=== PATIENT | female | born 1995 | race African-American/Black ===

== ENCOUNTER 2016-12-26 12:15 | Day surgery (SDC) | payer OTHER ==
[2016-12-25 12:21] VITALS: BMI 36.3
[2016-12-26] MEDS ORDERED: MIDAZOLAM HCL 2 MG/2 ML SINGLE DOSE VIAL ONE (15:13)
[2016-12-26] MEDS ORDERED: PROPOFOL 20 ML ONE (15:13)
[2016-12-26] MEDS ORDERED: ONDANSETRON 4 MG/2 ML VIAL ONE ×2 (15:18→16:35)
[2016-12-26] MEDS ORDERED: ceFAZolin SODIUM 1 GM VIAL ONE (15:18)
[2016-12-26] MEDS ORDERED: DEXAMETHASONE SOD PHOSPHATE 4 MG/1 ML VIAL ONE (15:18)
[2016-12-26] MEDS ORDERED: SODIUM CHLORIDE 0.9% P/F 10 ML VIAL IJ ONE (15:18)
[2016-12-26] MEDS ORDERED: oxyCODONE HCL 5 MG TABLET PO PRN ×2 (15:24)
[2016-12-26] MEDS ORDERED: ONDANSETRON 4 MG/2 ML VIAL IVPUSH PRN (15:24)
[2016-12-26] MEDS ORDERED: BUPIVACAINE HCL/PF 2.5 MG/ML - 30 ML VIAL IJ ONE (15:27)
[2016-12-26] MEDS ORDERED: LACTATED RINGERS SOLUTION 1,000 ML IV SCH (15:30)
[2016-12-26] MEDS ORDERED: BUPIVACAINE HCL/PF 0.25% (2.5MG/ML) 10 ML VIAL IJ ONE (16:13)
[2016-12-26 17:30] VITALS: TEMP 98.2
[2016-12-26 18:10] VITALS: BP 112/65; PULSE 64
--- NOTE | 2016-12-28 22:22 | OP ---
DATE OF OPERATION: 12/26/2016 SURGEON: Alvaro Medel M.D. [employer] SPECIALIST: Genaro Bourne PREOPERATIVE DIAGNOSIS: 1. Right knee medial lateral meniscal tear. 2. Right knee cartilage injury. 3. Right knee synovitis. POSTOPERATIVE DIAGNOSIS: 1. Right knee medial lateral meniscal tear. 2. Right knee cartilage injury. 3. Right knee synovitis. PROCEDURE: 1. Right knee arthroscopy, partial meniscectomy medial and lateral meniscus. 2. Right knee arthroscopy with chondroplasty and abrasion plasty. 3. Right knee arthroscopy synovectomy and removal of plica. FINDINGS: 1. Medial meniscus posterior horn tear/minor. 2. Lateral meniscus anterior horn tear/minor. 3. Synovitis patellofemoral medial lateral notch area most predominant anteriorly with large medial plica. 4. No . 5. ACL and PCL intact. 6. Antegrade 1-2 cartilage injury patellofemoral trochlea with small . PROCEDURE: Informed consent was obtained. The patient was taken to the operating room where the right lower extremity was prepped and draped in a sterile fashion. A tourniquet was placed on the right upper thigh but not inflated. Using standard arthroscopic technique, a lateral incision and portal were made which allowed for introduction of the camera into the suprapatellar bursa. This was then taken to the medial joint line where under direct visualization, a medial incision and portal were made. Excessive synovium noted in the medial, lateral, patellofemoral and notch area was removed by the up-biting shaver and Bovie cautery. This was found to bring inflammatory tissue into the joint surface, a source of joint pain and dysfunction. Probing of the medial and lateral meniscus found tears described in the findings. These were removed with an up-biting shaver and taken back to a stable rim. Grade 2-3 degenerative changes were treated with chondroplasty, removing all flaking surfaces with low setting Bovie used along the periphery. Grade 4 changes were treated with abrasion-plasty. All areas of the knee were once again re-examined. The knee was then drained. A single suture was placed on all portals. Sterile dressing was placed. The patient was transferred to the recovery room. ALVARO MEDEL M.D. [id number]
--- NOTE | 2016-12-30 14:02 | PATH ---
Surgical Pathology Report Patient Name: HA CLINE [facility]. Rec. #: [id number] /Age/Gender: 1995 (Age: 21) / F Account: [id number] Location: [facility] Taken: 12/26/2016 Received: 12/26/2016 Reported: 12/30/2016 Physicians: Alvaro No M.D. Specimen(s) Received RIGHT KNEE SHAVINGS Clinical History Internal derangement of right knee Final Diagnosis KNEE, RIGHT, ARTHROSCOPIC SHAVING: FIBROCARTILAGE WITH MYXOID DEGENERATIVE CHANGES, ALONG WITH PORTIONS OF SYNOVIUM. Electronically Signed Avelino Anders M.D. Gross Description Received in formalin labeled "right knee shavings," is a 1.5 x 1.0 x 0.2 cm aggregate of mathew-yellow soft tissue fragments. The formalin is filtered and the specimen is entirely submitted in one cassette. /12/29/201612/29/2016
== END 2016-12-26 18:15 | disposition home or self-care (01) ==
LOC: FASU 12:15
PROVIDERS: ATTEND Orthopaedic Surgery
PROC: 0SBC4ZZ Excision of Right Knee Joint, Percutaneous Endoscopic Approach (ICD-10-PCS; 2016-12-26)
PROC: 0SBC4ZZ Excision of Right Knee Joint, Percutaneous Endoscopic Approach (ICD-10-PCS; 2016-12-26)
PROC: 0SBC4ZZ Excision of Right Knee Joint, Percutaneous Endoscopic Approach (ICD-10-PCS; principal; 2016-12-26 15:00)
DX: S83.241A Other tear of medial meniscus, current injury, right knee, initial encounter (principal); S83.281A Other tear of lateral meniscus, current injury, right knee, initial encounter; S83.8X1A Sprain of other specified parts of right knee, initial encounter; M65.861 Other synovitis and tenosynovitis, right lower leg; X58.XXXA Exposure to other specified factors, initial encounter; Y93.9 Activity, unspecified; Y92.9 Unspecified place or not applicable
CPT/HCPCS: 84703; 88304-TC; 94760